=== PATIENT | female | born 1975 | race Caucasian/White ===

== ENCOUNTER 2018-03-30 12:59 | Emergency (ER) | END 2018-03-30 17:21 | disposition home or self-care (01) ==

== ENCOUNTER 2018-11-02 09:40 | Emergency (ER) | payer OTHER ==
[~2018-11-02] VITALS: Ht 154.9 cm; Wt 67.6 kg
[~2018-11-02 09:40] MED LIST: ACET500C5 PO; CALC-143 PO; CETI10TA19 PO; FERR240T9 PO; FOLI-49 PO; IBUP-1542 PO; POLY10DR RIGHT EYE; PRENAT PO
[2018-11-02 09:53] VITALS: BP 118/77; PULSE 96; RESP 18; Ht 154.9 cm; Wt 67.6 kg
[2018-11-02] MEDS ORDERED: KETOROLAC 30 MG INJ IM STA (10:05)
[2018-11-02] MEDS ORDERED: ONDANSETRON (ODT) 4 MG TAB ODT STA (10:05)
[2018-11-02] MEDS ORDERED: D-ME473S2 PO (10:54)
[2018-11-02] MEDS ORDERED: IBUP-1542 PO (10:54)
--- NOTE | 2018-11-02 10:58 | ERD ---
ER Documentation Chief Complaint Chief Complaint COUGHING; SORE THROAT HPI 43-year-old female presents with cough and sore throat since yesterday. She may have had tactile fevers but no fever triage. She has nausea but no vomiting, and denies abdominal pain, urinary complaints, neck stiffness, rashes. ROS All systems reviewed and are negative except as per history of present illness. Medications Home Meds Active Scripts Dextromethorphan Hb-Promethazine Hcl* (Promethazine DM* Syrup) 473 Ml Syrup, 5 ML PO Q6 PRN for COUGH for 5 Days, ML Prov:VIANNEY CAMPOS MD 11/02/18 Ibuprofen* (Motrin*) 600 Mg Tab, 600 MG PO Q6, #15 TAB Prov:VIANENY CAMPOS MD 11/02/18 Acetaminophen* (Tylophen*) 500 Mg Capsule, 1 CAP PO Q6H PRN for PAIN AND OR ELEVATED TEMP, #20 CAP Prov:BONNIE FRAIRE PA-C 03/30/18 Ibuprofen* (Motrin*) 600 Mg Tab, 600 MG PO Q6, #30 TAB Prov:BONNIE FRAIRE PA-C 03/30/18 Cetirizine Hcl* (Cetirizine Hcl*) 10 Mg Tablet, 10 MG PO DAILY, #10 TAB Prov:VIANNEY CAMPOS MD 05/26/16 Polymyxin/Trimethoprim* (Polytrim* Eye Drops) 10 Ml Drops, 1 DROP RIGHT EYE Q3H for 7 Days, EA Prov:VIANNEY CAMPOS MD 05/26/16 Reported Medications Folic Acid* (Folic Acid*) 1 Mg Tablet, 1 MG PO DAILY, TAB 05/30/14 Calcium Citrate/Vitamin D (Citracal-Vitamin D 200 MG-250) 1 Each Tablet, 1 EACH PO DAILY, TAB 05/30/14 Ferrous Gluconate (Iron) 1 Tab Tablet, 1 TAB PO DAILY 04/26/14 Multivit/Min/Fol Ac/Iron/Pren* ( S*) 1 Tab Tab, 1 TAB PO DAILY, TAB 04/26/14 Allergies Allergies: Coded Allergies: No Known Allergy (Unverified , 11/02/18) PMhx/Soc Medical and Surgical Hx: pt denies Medical Hx, pt denies Surgical Hx History of Surgery: No Anesthesia Reaction: No Hx Neurological Disorder: No Hx Respiratory Disorders: No Hx Cardiac Disorders: No Hx Psychiatric Problems: No Hx Miscellaneous Medical Probl: No Hx Alcohol Use: No Hx Substance Use: No Hx Tobacco Use: No Smoking Status: Never smoker FmHx Family History: No diabetes, No coronary disease, No other Physical Exam Vitals Vital Signs Date Temp Pulse Resp B/P (MAP) Pulse Ox O2 O2 Flow FiO2 Time Delivery Rate 11/02/18 97.7 96 18 118/77 97 09:53 (91) Physical Exam Const: No acute distress Head: Atraumatic Eyes: Normal Conjunctiva ENT: Normal External Ears, Nose and Mouth. TMs normal. Tonsils 2+ with slight redness and scant exudate. Uvula midline and airway patent. Neck: Full range of motion. No meningismus. Resp: Clear to auscultation bilaterally Cardio: Regular rate and rhythm, no murmurs Abd: Soft, non tender, non distended. Normal bowel sounds Skin: No petechiae or rashes Back: No midline or flank tenderness Ext: No cyanosis, or edema Neur: Awake and alert Psych: Normal Mood and Affect Results 24 hrs Laboratory Tests Test 11/02/18 10:19 POC Beta HCG, Qualitative NEGATIVE Current Medications Medications Dose Sig/Rashaad Start Time Status Last (Trade) Ordered Route PRN Stop Time Admin Dose Reason Admin Ketorolac 30 mg ONCE STAT 11/02/18 DC 11/02/18 Tromethamine IM 10:05 10:23 (Toradol) 11/02/18 10:07 Ondansetron 8 mg ONCE STAT 11/02/18 DC 11/02/18 HCl (Zofran ODT 10:05 10:23 Odt) 11/02/18 10:07 Procedures/MDM Patient presents with sore throat and URI symptoms since yesterday. Rapid strep is negative. She has no signs of abscess, airway obstruction, hypoxemia, rest or distress, signs of pneumonia or abdominal pain. We will treat symptomatically with promethazine, ibuprofen, primary care follow-up and return precautions. She was administered Toradol and Zofran here in the ED. The patient was stable with no new complaints during the ER course. Clinically, there is no current evidence to suggest meningitis, sepsis, acute abdomen, pneumonia, stroke, acute coronary syndrome, pulmonary embolism, aortic dissection or any other emergent condition appearing to require further evaluation or hospitalization. Patient counseled regarding my diagnostic impres merrill and care plan. Prior to discharge all questions answered. Pt agrees with treatment plan and understands strict return precautions. Pt is instructed to follow up with primary care provider within 24-48 hours. Precautionary instructions provided including instructions to return to the ER if not improving or for any worsening or changing symptoms or concerns. Departure Diagnosis: Primary Impression: URI, acute Additional Impression: Sore throat Patient Instructions: When You Have a Sore Throat, Uri, Viral, No Abx (Adult) Additional Instructions: Strep test negative. Likely viral illness should resolve in the next 3-5 days. Recheck for new or worsening symptoms with primary care doctor. VIANNEY CAMPOS MD Nov 02, 2018 10:58
== END 2018-11-02 11:12 | disposition home or self-care (01) ==
LOC: FTE 09:40
DX: J06.9 Acute upper respiratory infection, unspecified (principal); J02.9 Acute pharyngitis, unspecified
CPT/HCPCS: 81025; 87880; 96372; J1885; Z7502; Z7610